=== PATIENT | female | born 1990 | race Asian ===

== ENCOUNTER 2019-11-18 02:45 | Inpatient (IN) ==
[2019-11-18] MEDS ORDERED: OXYTOCIN 30 UNITS/500 ML BAG IV PRN ×3 (04:18→22:54)
[2019-11-18 04:49] LABS: Hematocrit (blood only) 38.5 % (37-47); Hemoglobin 13.1 g/dL (12.0-16.0); Mean Corpuscular Hemoglobin 31.6 pg (25-34); Mean Platelet Volume 10.3 fL (7.4-10.4); Platelet Count 229 K/uL (130-400); RDW Coefficient of Variation 13.4 % (11.5-14.5); RDW Standard Deviation 45.6 fL (36.4-46.3); Red Blood Count 4.14 M/uL (4.2-5.4); White Blood Count 11.21 K/uL (4.8-10.8)
[2019-11-18] MEDS: LACTATED RINGER'S 1,000 ML IV PRN ×4 (06:48→20:23)
--- NOTE | 2019-11-18 06:49 | History & Physical Report ---
Date of Service November 18, 2019 Assessment & Plan (1) Normal labor: 29 yo F with no PMHx or complications this admitted for augmentation of labor with EDC 11/28; with PROM this morning. - Will augment labor with Pitocin. Pt is GBS negative. - Labor plan includes epidural. - Fetus with category 1 tracing. - Expect . History of Present Illness Primary Care Provider: NO PCP Ticou is a 29 yo F ; EDC 11/29/19 at 38+ weeks; Presents this AM for PROM at about 2am, but denies contractions, confirms good movement. No complications this . Received care by [facility]. Labor plan includes epidural. Patient plans to breastfeed after delivery. Labs (04/26/19; 11/18/19): Blood type: A+ Antibody screen: negative Hgb: 13.1 Hct: 38.5% WBC: 11.21 Plt: 229 Rubella status: immune VDLR/RPR: NR Gonorrhea: negative Chlamydia: negative HIV: negative GBS: negative HbSAg: negative Glucose tolerance test x2: normal OB Hx: no prior pregnancies, no complications this Gui Developer Hx: No Hx of STIs, no Hx of abnormal PAPs, last PAP 04/27/19 was negative Allergies Allergy/AdvReac Type Severity Reaction Status Date / Time No Known Allergies Allergy Verified 11/18/19 03:06 Home Medications Home Medications Medication Instructions Recorded Confirmed Type vitamin with calcium 1 tab PO DAILY #90 tab 09/20/19 11/18/19 Rx no.72-iron 27 mg-folic acid 1 mg tablet breast pump #1 ea 11/08/19 11/08/19 Rx docusate sodium [Colace] 100 mg PO BID 11/18/19 11/18/19 History Patient History Medical History No pertinent past medical history Family History Grandmother (Paternal) Diabetes Hypertension Grandfather (Paternal) Hypertension Grandmother (Maternal) Ovarian cancer Mother Ovarian cyst Social History Preferred Language: Mauritian Communication Ability: Effective Financial Reporting Specialist Required: No Beliefs That Will Affect Care: None marital status: marital status details: Deloris Jones (31) [phone] Current Living Situation: Spouse Current Living Situation Comment: no pets current occupational status: unemployed Feels Safe at Home: Yes Safety Concerns: Feels Safe At This Time Smoking Status: Never smoker Second Hand Exposure: No ; Hx Alcohol Use: No Hx Substance Use: No Childhood Exposure to Second-Hand Smoke: No Review of Systems Constitutional: denies fever, chills, sweats, headache Respiratory: denies SOB, difficulty breathing Cardiac: denies CP, chest palpitations, chest pressure Breast: denies breast pain : denies dysuria Physical Exam Physical Exam: General: patient is alert and oriented, in NAD Cardiac: +S1/S2, no murmurs rubs or gallops Respiratory: lungs CTA b/l, anteriorly and posteriorly, no wheezes rales or rhonchi, no increased work of breathing, symmetric chest rise, no respiratory distress Abdomen: Gravid, fundal height is term, + FHTs, baby is presenting vertex, no palpable contractions, EFW 7-8 lbs Uterus: uterine fundus firm Lower Extremities: no LE edema or swelling, no deep calf pain, Jenae's sign negative b/l Genitourinary: Manual OB Exam: + cervical dilation 1 cm, + cervical effacement 50% and + station -1 OB Exam Monitor Tracing: + external FHT monitor used, + external uterine monitor used, + category I and + normal FHT variability Results & Data Vital Signs (Past 12 Hours) Vital Signs Temp Pulse Resp BP 11/18/19 05:12 37.2 C 18 11/18/19 03:26 37.1 C 18 11/18/19 03:05 37.1 C 68 18 121/77 Laboratory Results Laboratory Results - last 24 hr 11/18/19 04:34 WBC 11.21 H RBC 4.14 L Hgb 13.1 Hct 38.5 MCV 93.0 MCH 31.6 MCHC 34.0 RDW Std Deviation 45.6 RDW Coeff of Surjit 13.4 Plt Count 229 MPV 10.3 Medications Administered Current Medications Lactated Ringer's (Lr) 1,000 mls @ 125 mls/hr IV .Q8H PRN; Protocol PRN Reason: L&D Protocol Stop: 11/20/19 04:17 Last Admin: 11/18/19 06:48 Dose: 125 mls/hr Documented by: Oxytocin (Pitocin) 30 units in 500 mls @ 333.333 mls/hr IV .Q1H30M PRN; Protocol PRN Reason: Bleeding Control Stop: 12/18/19 04:17 Oxytocin (Pitocin) 30 units in 500 mls @ 1 mls/hr IV .Q24H PRN; Protocol PRN Reason: Labor Induction/Augmentation Stop: 11/20/19 06:45 Monitoring External Monitor FHR 140s with good variability Supervising Physician Co-Signing Physician Notes Resident Physician Supervision Note: I was present with Dr. Park during the history and exam. I discussed the case with the resident and agree with the findings and plan as documented in the note. Any exceptions or clarifications are listed here: 29 G1 at 38 (+) wks GA, SROM, benign course, no uterine activity, EFW 8 lbs, will start pitocin augmentation, all questions answered of patient. Documented By: Clyde Jean Jr, MD, FACOG Coding Level of Care Code None Diagnoses Normal labor O80; Z37.9 Resident Activity Tracking Resident Involvement: Resident Care Provided Care Provided: OB Delivery
[2019-11-18] MEDS ORDERED: fentaNYL 2MCG/ML ROPIV 1.25MG/ML 100 ML BAG EPI ONE (09:37)
[2019-11-18] MEDS ORDERED: ePHEDrine sulfate 50 MG/ML AMP ONE (09:37)
[2019-11-18] MEDS ORDERED: BUPIVACAINE 0.25% 30 ML VIAL ONE (09:37)
[2019-11-18] MEDS ORDERED: fentaNYL citrate 100 MCG/2 ML VIAL ONE (09:37)
[2019-11-18] MEDS ORDERED: NALOXONE HCL 1 MG in SODIUM CHLORIDE 0.9% 1000ML 1,000 ML IV PRN (10:04)
[2019-11-18] MEDS ORDERED: fentaNYL 2MCG/ML ROPIV 1.25MG/ML 100 ML BAG EPI PRN (10:04)
[2019-11-18] MEDS ORDERED: ONDANSETRON INJ 2 MG/ML 2 ML VIAL IV PRN (10:04)
[2019-11-18] MEDS ORDERED: ePHEDrine sulfate 50 MG/ML AMP IV PRN (10:04)
[2019-11-18] MEDS ORDERED: NALBUPHINE HCL INJ 10 MG/ML AMP IV PRN (10:04)
[2019-11-18] MEDS ORDERED: DiphenhydrAMINE HCL 50 MG/ML VIAL IV PRN (10:04)
[2019-11-18] MEDS ORDERED: NALOXONE HCL 0.4 MG/1 ML VIAL/CARP IV PRN (10:04)
--- NOTE | 2019-11-18 10:08 | Anesthesiology Consultation ---
Date of Service November 18, 2019 Assessment & Plan Chart Review Chart Review: Patient NOT seen in Pre Admission Testing and Acceptable Risk for Labor Epidural Consults Requested none ASA ASA2 Proposed Anesthesia Anesthesia Type: Labor Epidural and CSE Risk / Benefits Reviewed With: PT / POA / Parent / Guardian, Accepts Plan and Informed Consent Obtained History Height/Weight Height: 5 ft 7 in Weight: 87.543 kg Allergies Allergy/AdvReac Type Severity Reaction Status Date / Time No Known Allergies Allergy Verified 11/18/19 03:06 Medications Home Medications Medication Instructions Recorded Confirmed Last Taken vitamin with calcium 1 tab PO DAILY #90 tab 09/20/19 11/18/19 11/15/19 08:00 no.72-iron 27 mg-folic acid 1 mg tablet breast pump #1 ea 11/08/19 11/08/19 Unknown docusate sodium [Colace] 100 mg PO BID 11/18/19 11/18/19 11/16/19 08:00 Active Medications Generic Name Dose Route Start Last Admin Trade Name Freq PRN Reason Stop Dose Admin Lactated Ringer's 1,000 mls @ 125 mls/hr 11/18/19 04:18 11/18/19 10:05 Lr IV 11/20/19 04:17 125 mls/hr .Q8H PRN Administration L&D Protocol Protocol Oxytocin 30 units in 500 mls @ 7 mls/hr 11/18/19 06:46 11/18/19 09:15 Pitocin IV 11/20/19 06:45 0.42 units/hr .Q24H PRN 7 mls/hr Labor Induction/Augmentation Titration Protocol 0.42 UNITS/HR NPO Date Last Intake of Fluids: 11/18/19 Time Last Intake of Fluids: 06:00 Date Last Intake of Solids: 11/18/19 Time Last Intake of Solids: 06:00 Past Medical History Medical History No pertinent past medical history Exercise / Class Metabolic Activity II 4-5 Yardwork/Stairs/Walk up hill Past Family History Family History Grandmother (Paternal) Diabetes Hypertension Grandfather (Paternal) Hypertension Grandmother (Maternal) Ovarian cancer Mother Ovarian cyst Past Anesthesia History No Hx of Anesthesia Complications and No Family Hx of Anesthesia Complications History of PONV No Hx of PONV and No Hx of Motion Sickness Social History Smoking Status: Never smoker Hx Alcohol Use: No Hx Substance Use: No Review of Systems no chest pain or sob Physical Exam Vital Signs Last Vital Signs Temp 37.1 C 11/18/19 08:49 Pulse 71 11/18/19 10:01 Resp 20 11/18/19 08:49 BP 127/76 11/18/19 10:00 Pulse Ox 93 11/18/19 10:01 ENMT Mouth: no TMJ abnormality Thyromental Distance: > or= 3.5 Finger Breadths Mallampati Class: II Neck normal visual inspection Respiratory normal respiratory effort Auscultation: lungs clear to auscultation bilaterally Cardiovascular Rate/Rhythm: regular rate and regular rhythm Musculoskeletal Spine: normal cervical ROM Neurologic moves all extremities Psychiatric Orientation: alert and oriented x 3 Testing Laboratory Results 11/18/19 04:34
--- NOTE | 2019-11-18 19:25 | Labor Progress Brief Note ---
Date of Service November 18, 2019 Subjective Reason For Note: Routine Evaluation Assessment & Plan (1) Normal labor: Patient progressing well with Cat 1 tracing. Continue labor with pitocin augmentation. Physical Exam Genitourinary: Manual OB Exam: + cervical dilation (8.5) OB Exam Monitor Tracing: + category I Results & Data Vital Signs (Past 12 Hours) Vital Signs Temp Pulse Resp BP Pulse Ox 11/18/19 19:17 73 95 11/18/19 19:16 75 109/66 11/18/19 19:15 37.8 C H 18 11/18/19 19:12 74 93 11/18/19 19:11 80 93 11/18/19 19:07 80 95 11/18/19 19:05 80 94 11/18/19 19:02 76 95 11/18/19 18:59 79 119/61 94 11/18/19 18:57 78 96 11/18/19 18:54 82 94 11/18/19 18:52 85 95 11/18/19 18:47 82 96 11/18/19 18:44 80 20 117/68 11/18/19 18:42 89 96 11/18/19 18:37 89 95 11/18/19 18:32 89 96 11/18/19 18:29 37.2 C 81 20 122/71 11/18/19 18:27 86 96 11/18/19 18:22 87 95 11/18/19 18:17 88 96 11/18/19 18:13 93 H 121/73 11/18/19 18:12 89 96 11/18/19 18:07 83 97 11/18/19 18:02 85 96 11/18/19 17:58 86 18 119/76 11/18/19 17:57 82 95 11/18/19 17:52 79 96 11/18/19 17:47 77 95 11/18/19 17:43 79 123/77 94 11/18/19 17:42 78 94 11/18/19 17:37 77 96 11/18/19 17:32 79 96 11/18/19 17:29 37.2 C 83 20 118/78 11/18/19 17:27 76 95 11/18/19 17:25 77 94 11/18/19 17:22 70 94 11/18/19 17:20 72 94 11/18/19 17:17 74 94 03/13/20 17:15 73 94 11/18/19 17:13 71 110/61 11/18/19 17:12 76 95 11/18/19 17:08 74 94 11/18/19 17:07 74 95 11/18/19 17:03 74 94 11/18/19 17:02 72 95 11/18/19 16:59 71 108/61 11/18/19 16:57 72 94 11/18/19 16:52 74 94 11/18/19 16:47 70 95 11/18/19 16:45 82 115/68 94 11/18/19 16:42 76 95 11/18/19 16:39 76 94 11/18/19 16:37 78 95 11/18/19 16:32 77 95 11/18/19 16:28 79 115/73 11/18/19 16:27 71 95 11/18/19 16:26 71 94 11/18/19 16:22 77 94 11/18/19 16:21 79 94 11/18/19 16:17 81 94 11/18/19 16:15 80 94 11/18/19 16:13 78 121/76 11/18/19 16:12 78 95 11/18/19 16:09 79 94 11/18/19 16:07 77 95 11/18/19 16:02 78 95 11/18/19 15:59 80 94 11/18/19 15:58 80 120/78 11/18/19 15:57 76 96 11/18/19 15:52 72 95 11/18/19 15:47 73 95 11/18/19 15:46 75 94 11/18/19 15:45 81 120/77 11/18/19 15:42 73 95 11/18/19 15:37 79 96 11/18/19 15:36 73 94 11/18/19 15:32 75 95 11/18/19 15:30 37.2 C 65 20 111/67 11/18/19 15:27 73 94 11/18/19 15:22 74 96 11/18/19 15:21 72 94 11/18/19 15:17 72 94 11/18/19 15:16 72 94 11/18/19 15:14 73 125/64 11/18/19 15:12 65 94 11/18/19 15:10 71 94 11/18/19 15:07 74 94 11/18/19 15:04 74 94 11/18/19 15:02 74 94 11/18/19 14:59 73 123/61 11/18/19 14:58 78 94 11/18/19 14:57 74 95 11/18/19 14:52 60 94 11/18/19 14:51 65 94 11/18/19 14:47 65 93 11/18/19 14:46 73 94 11/18/19 14:45 84 112/72 11/18/19 14:42 75 94 11/18/19 14:40 66 94 11/18/19 14:37 69 94 11/18/19 14:32 61 93 11/18/19 14:30 65 117/60 11/18/19 14:27 61 93 11/18/19 14:26 69 94 11/18/19 14:22 61 93 11/18/19 14:17 67 94 11/18/19 14:15 63 113/56 L 11/18/19 14:13 71 94 11/18/19 14:12 68 95 11/18/19 14:07 66 95 11/18/19 14:02 63 94 11/18/19 14:01 67 94 11/18/19 13:59 37.1 C 61 20 113/59 L 11/18/19 13:57 62 94 11/18/19 13:56 72 94 11/18/19 13:52 68 95 11/18/19 13:50 64 94 11/18/19 13:47 69 95 11/18/19 13:45 67 94 11/18/19 13:44 62 112/65 11/18/19 13:42 63 94 11/18/19 13:39 67 94 11/18/19 13:37 65 96 11/18/19 13:33 66 93 11/18/19 13:32 62 95 11/18/19 13:30 20 11/18/19 13:29 66 114/59 L 11/18/19 13:27 65 96 11/18/19 13:25 64 94 11/18/19 13:22 65 95 11/18/19 13:17 74 95 11/18/19 13:16 73 94 11/18/19 13:14 65 114/59 L 11/18/19 13:12 75 95 11/18/19 13:08 73 94 11/18/19 13:07 71 95 11/18/19 13:03 70 94 11/18/19 13:02 71 95 11/18/19 13:00 37.0 C 20 11/18/19 12:59 37.0 C 69 20 122/61 11/18/19 12:57 69 95 11/18/19 12:56 70 94 11/18/19 12:52 67 95 11/18/19 12:49 69 94 11/18/19 12:47 63 95 11/18/19 12:44 70 120/69 94 11/18/19 12:42 66 94 11/18/19 12:39 66 94 11/18/19 12:37 67 94 11/18/19 12:33 66 94 11/18/19 12:32 67 95 11/18/19 12:30 65 20 115/62 11/18/19 12:27 68 94 11/18/19 12:22 66 93 11/18/19 12:17 73 94 11/18/19 12:16 74 94 11/18/19 12:15 72 111/69 11/18/19 12:12 70 94 11/18/19 12:10 71 94 11/18/19 12:07 67 94 11/18/19 12:02 69 93 11/18/19 12:01 65 20 98/56 L 11/18/19 11:57 68 95 11/18/19 11:52 64 94 11/18/19 11:47 66 93 11/18/19 11:46 68 93 11/18/19 11:44 70 127/69 11/18/19 11:42 75 95 11/18/19 11:37 70 93 11/18/19 11:35 67 94 11/18/19 11:32 73 95 11/18/19 11:29 65 18 116/67 94 11/18/19 11:27 69 95 11/18/19 11:24 69 94 11/18/19 11:22 66 94 11/18/19 11:18 66 94 11/18/19 11:17 66 95 11/18/19 11:14 37.1 C 65 113/67 11/18/19 11:12 62 94 11/18/19 11:07 65 95 11/18/19 11:06 67 94 11/18/19 11:02 69 95 11/18/19 11:00 68 94 11/18/19 10:59 63 18 119/72 11/18/19 10:57 66 95 11/18/19 10:55 64 94 11/18/19 10:52 65 94 11/18/19 10:49 67 94 11/18/19 10:47 66 96 11/18/19 10:42 70 95 11/18/19 10:39 68 121/75 94 11/18/19 10:37 65 95 11/18/19 10:34 68 122/72 92 11/18/19 10:32 70 94 11/18/19 10:29 73 20 118/71 11/18/19 10:28 71 94 11/18/19 10:27 70 112/66 11/18/19 10:26 70 95 11/18/19 10:25 76 120/68 11/18/19 10:23 69 118/69 11/18/19 10:21 75 124/71 93 11/18/19 10:20 73 94 11/18/19 10:16 70 95 11/18/19 10:13 82 94 11/18/19 10:11 71 96 11/18/19 10:08 74 94 11/18/19 10:06 73 95 11/18/19 10:01 71 93 11/18/19 10:00 68 20 127/76 11/18/19 08:49 37.1 C 68 20 130/74 11/18/19 08:02 75 116/67 Coding Level of Care Code None Diagnoses Normal labor O80; Z37.9
--- NOTE | 2019-11-18 20:42 | Labor Progress Brief Note ---
Date of Service November 18, 2019 Subjective Reason For Note: Routine Evaluation Assessment & Plan (1) Normal labor: Cervix unchanged will place IUPC if unchanged at next check. Caput noted. Cat 1 at present Physical Exam Genitourinary: Manual OB Exam: + cervical dilation (8.5) OB Exam Monitor Tracing: + external FHT monitor used and + category I Results & Data Vital Signs (Past 12 Hours) Vital Signs Temp Pulse Resp BP Pulse Ox 11/18/19 20:37 73 94 11/18/19 20:32 77 96 11/18/19 20:29 76 111/63 11/18/19 20:27 77 95 11/18/19 20:22 78 95 11/18/19 20:17 75 95 11/18/19 20:14 37.4 C 18 11/18/19 20:13 87 116/62 11/18/19 20:12 74 94 11/18/19 20:07 74 93 11/18/19 20:02 71 94 11/18/19 19:59 78 18 111/60 11/18/19 19:57 76 95 11/18/19 19:52 76 94 11/18/19 19:47 74 96 11/18/19 19:44 74 114/61 11/18/19 19:42 77 95 11/18/19 19:37 83 95 11/18/19 19:32 73 95 11/18/19 19:29 68 112/60 11/18/19 19:27 66 93 11/18/19 19:22 78 95 11/18/19 19:17 73 95 11/18/19 19:16 75 109/66 11/18/19 19:15 37.8 C H 18 11/18/19 19:12 74 93 11/18/19 19:11 80 93 11/18/19 19:07 80 95 11/18/19 19:05 80 94 11/18/19 19:02 76 95 11/18/19 18:59 79 119/61 94 11/18/19 18:57 78 96 11/18/19 18:54 82 94 11/18/19 18:52 85 95 11/18/19 18:47 82 96 11/18/19 18:44 80 20 117/68 11/18/19 18:42 89 96 11/18/19 18:37 89 95 11/18/19 18:32 89 96 11/18/19 18:29 37.2 C 81 20 122/71 11/18/19 18:27 86 96 11/18/19 18:22 87 95 11/18/19 18:17 88 96 11/18/19 18:13 93 H 121/73 11/18/19 18:12 89 96 11/18/19 18:07 83 97 11/18/19 18:02 85 96 11/18/19 17:58 86 18 119/76 11/18/19 17:57 82 95 11/18/19 17:52 79 96 11/18/19 17:47 77 95 11/18/19 17:43 79 123/77 94 11/18/19 17:42 78 94 11/18/19 17:37 77 96 11/18/19 17:32 79 96 11/18/19 17:29 37.2 C 83 20 118/78 11/18/19 17:27 76 95 11/18/19 17:25 77 94 11/18/19 17:22 70 94 11/18/19 17:20 72 94 11/18/19 17:17 74 94 11/18/19 17:15 73 94 11/18/19 17:13 71 110/61 11/18/19 17:12 76 95 11/18/19 17:08 74 94 11/18/19 17:07 74 95 11/18/19 17:03 74 94 11/18/19 17:02 72 95 11/18/19 16:59 71 108/61 11/18/19 16:57 72 94 11/18/19 16:52 74 94 11/18/19 16:47 70 95 11/18/19 16:45 82 115/68 94 11/18/19 16:42 76 95 11/18/19 16:39 76 94 11/18/19 16:37 78 95 11/18/19 16:32 77 95 11/18/19 16:28 79 115/73 03 16:27 71 95 11/18/19 16:26 71 94 11/18/19 16:22 77 94 11/18/19 16:21 79 94 11/18/19 16:17 81 94 11/18/19 16:15 80 94 11/18/19 16:13 78 121/76 0320 16:12 78 95 11/18/19 16:09 79 94 11/18/19 16:07 77 95 11/18/19 16:02 78 95 11/18/19 15:59 80 94 11/18/19 15:58 80 120/78 11/18/19 15:57 76 96 11/18/19 15:52 72 95 11/18/19 15:47 73 95 11/18/19 15:46 75 94 11/18/19 15:45 81 120/77 11/18/19 15:42 73 95 11/18/19 15:37 79 96 11/18/19 15:36 73 94 11/18/19 15:32 75 95 11/18/19 15:30 37.2 C 65 20 111/67 11/18/19 15:27 73 94 11/18/19 15:22 74 96 11/18/19 15:21 72 94 11/18/19 15:17 72 94 11/18/19 15:16 72 94 11/18/19 15:14 73 125/64 11/18/19 15:12 65 94 11/18/19 15:10 71 94 11/18/19 15:07 74 94 11/18/19 15:04 74 94 11/18/19 15:02 74 94 11/18/19 14:59 73 123/61 11/18/19 14:58 78 94 11/18/19 14:57 74 95 11/18/19 14:52 60 94 11/18/19 14:51 65 94 11/18/19 14:47 65 93 11/18/19 14:46 73 94 11/18/19 14:45 84 112/72 11/18/19 14:42 75 94 11/18/19 14:40 66 94 11/18/19 14:37 69 94 11/18/19 14:32 61 93 11/18/19 14:30 65 117/60 11/18/19 14:27 61 93 11/18/19 14:26 69 94 11/18/19 14:22 61 93 11/18/19 14:17 67 94 11/18/19 14:15 63 113/56 L 11/18/19 14:13 71 94 11/18/19 14:12 68 95 11/18/19 14:07 66 95 03/13/20 14:02 63 94 11/18/19 14:01 67 94 11/18/19 13:59 37.1 C 61 20 113/59 L 11/18/19 13:57 62 94 11/18/19 13:56 72 94 11/18/19 13:52 68 95 11/18/19 13:50 64 94 11/18/19 13:47 69 95 11/18/19 13:45 67 94 11/18/19 13:44 62 112/65 11/18/19 13:42 63 94 11/18/19 13:39 67 94 11/18/19 13:37 65 96 11/18/19 13:33 66 93 11/18/19 13:32 62 95 11/18/19 13:30 20 11/18/19 13:29 66 114/59 L 11/18/19 13:27 65 96 11/18/19 13:25 64 94 11/18/19 13:22 65 95 11/18/19 13:17 74 95 11/18/19 13:16 73 94 11/18/19 13:14 65 114/59 L 11/18/19 13:12 75 95 11/18/19 13:08 73 94 11/18/19 13:07 71 95 11/18/19 13:03 70 94 11/18/19 13:02 71 95 11/18/19 13:00 37.0 C 20 11/18/19 12:59 37.0 C 69 20 122/61 11/18/19 12:57 69 95 11/18/19 12:56 70 94 11/18/19 12:52 67 95 11/18/19 12:49 69 94 11/18/19 12:47 63 95 11/18/19 12:44 70 120/69 94 11/18/19 12:42 66 94 11/18/19 12:39 66 94 11/18/19 12:37 67 94 11/18/19 12:33 66 94 11/18/19 12:32 67 95 11/18/19 12:30 65 20 115/62 11/18/19 12:27 68 94 11/18/19 12:22 66 93 11/18/19 12:17 73 94 11/18/19 12:16 74 94 11/18/19 12:15 72 111/69 0320 12:12 70 94 03 12:10 71 94 03 12:07 67 94 11/18/19 12:02 69 93 11/18/19 12:01 65 20 98/56 L 11/18/19 11:57 68 95 20 11:52 64 94 20 11:47 66 93 0320 11:46 68 93 20 11:44 70 127/69 03/20 11:42 75 95 0320 11:37 70 93 20 11:35 67 94 20 11:32 73 95 0320 11:29 65 18 116/67 94 20 11:27 69 95 0320 11:24 69 94 20 11:22 66 94 20 11:18 66 94 11/18/19 11:17 66 95 11/18/19 11:14 37.1 C 65 113/67 11/18/19 11:12 62 94 0320 11:07 65 95 11/18/19 11:06 67 94 11/18/19 11:02 69 95 11/18/19 11:00 68 94 0320 10:59 63 18 119/72 03/20 10:57 66 95 03/20 10:55 64 94 20 10:52 65 94 11/17/20 10:49 67 94 0320 10:47 66 96 0320 10:42 70 95 0320 10:39 68 121/75 94 03/20 10:37 65 95 03/20 10:34 68 122/72 92 03/20 10:32 70 94 03/20 10:29 73 20 118/71 0313/20 10:28 71 94 03/20 10:27 70 112/66 0313/20 10:26 70 95 03/20 10:25 76 120/68 03/13/20 10:23 69 118/69 03/13/20 10:21 75 124/71 93 0313/20 10:20 73 94 03/13/20 10:16 70 95 03/13/20 10:13 82 94 11/18/19 10:11 71 96 11/18/19 10:08 74 94 11/18/19 10:06 73 95 11/18/19 10:01 71 93 11/18/19 10:00 68 20 127/76 11/18/19 08:49 37.1 C 68 20 130/74 Coding Level of Care Code None Diagnoses Normal labor O80; Z37.9
[2019-11-18] MEDS ORDERED: HYDROCORTISONE ACETATE 25 MG SUPP PR PRN (22:54)
[2019-11-18] MEDS ORDERED: DIPHTHERIA/TETANUS/PERTUSSIS 0.5 ML SYR/VIAL IM ONE (22:54)
[2019-11-18] MEDS ORDERED: BENZOCAINE 20% AER SPR 82.5 GM CAN EXT PRN (22:54)
[2019-11-18] MEDS ORDERED: SUPERCREAM 0.870% 15 GM JAR EXT PRN (22:54)
[2019-11-18] MEDS ORDERED: ACETAMINOPHEN 325 MG TAB PO PRN (22:54)
[2019-11-18] MEDS ORDERED: bisacodyL 10 MG SUPP PR PRN (22:54)
[2019-11-18] MEDS ORDERED: GENTAMICIN CONSULT ACTIVE PRN (23:03)
[2019-11-18] MEDS: IBUPROFEN 600 MG TAB PO PRN (23:09)
--- NOTE | 2019-11-18 23:57 | Delivery Summary ---
DATE OF OPERATION: 11/18/2019 PROCEDURE: Normal spontaneous vaginal delivery with second-degree perineal laceration repair. SURGEON: Farhan Tirado MD PREOPERATIVE DIAGNOSES: 1. Single intrauterine at 38 weeks 3 days gestational age. 2. Premature rupture of membranes. POSTOPERATIVE DIAGNOSES: 1. Single intrauterine at 38 weeks 3 days gestational age. 2. Premature rupture of membranes. 3. Status post delivery. ESTIMATED BLOOD LOSS: 300 mL DRAINS: Straight cath at completion of the case. URINE OUTPUT: 400 mL at the completion of the case. COMPLICATIONS: None. FINDINGS: Viable male with weight pending and Apgars of 6 and 7 at 1 and 5 minutes respectively. INDICATIONS: Ms. Cardenas is a 29-year-old G1, P0, admitted at 38.3 weeks' gestational age for premature rupture of membranes. At time of initial evaluation, the patient was 1 cm dilated, 50% effaced, -1 station. She was started on oxytocin per regular protocol. She later received an epidural for anesthesia. She continued to progress in labor with Pitocin augmentation until she was complete-complete, +2 station, at which time the patient began to push. The patient was noted to have short periods of tachycardia without maternal temperature. At time of delivery, the maternal temperature was noted within few minutes of delivery; however, there was not tachycardia present at that time. Due to the immediacy of delivery, we opted to proceed with expedited delivery. The patient delivered within approximately 10 minutes of the temperature. DESCRIPTION OF PROCEDURE: The patient progressed to 10 cm dilated, 100% effaced, +2 station, pushed over intact perineum with epidural anesthesia and delivered a viable male with weight and Apgars as noted above. Head of the delivered in VANIA position, rest was transverse. A double nuchal cord was noted which was able to be reduced. Body and shoulders quickly followed. was noted to have spontaneous cry soon after delivery. The cord was double clamped and cut and was taken to the awaiting nursery staff for further evaluation. Cord blood was obtained for collection and then cord blood for blood typing was also collected. Attention was then turned to delivery of placenta, which was delivered intact, 3-vessel cord with gentle cord traction. On inspection of the perineum, vagina, and cervix, there was noted to be a second-degree perineal laceration which was repaired with 3-0 Vicryl continuous crown stitch. The bladder was drained for 400 mL of yellow urine at the completion of the case via red rubber. Needle, sponge, and instrument counts were correct at the completion of the case. Both mother and were stable in the immediate post-delivery period. I attest to the content of the Intraoperative Record and any orders documented therein. Any exceptions are noted below. MTDD
[2019-11-19] MEDS: CLINDAMYCIN 900 MG in DEXTROSE 5% 50 ML IV SCH ×2 (01:00→08:30)
[2019-11-19] MEDS ORDERED: GENTAMICIN SULFATE 360 MG in DEXTROSE 5% 100 ML IV SCH (01:00)
--- NOTE | 2019-11-19 01:21 | Anesthesia Procedure Note ---
Date of Service November 19, 2019 Anesthesia Post Epidural Note Vital Signs Vital Signs: Temp Pulse Resp BP Pulse Ox 37.2 C 89 18 115/59 L 95 11/19/19 00:46 11/19/19 01:02 11/19/19 00:46 11/19/19 01:02 11/18/19 22:47 Pain Intensity Episiotomy/Laceration: Pain Intensity: 3 Notes Mental Status: alert / awake / arousable and participated in evaluation Nausea / Vomiting: adequately controlled Pain: adequately controlled Airway Patency, RR, SpO2: stable & adequate BP & HR: stable & adequate Hydration State: stable & adequate Neuraxial Anesthesia: was administered and sensory block is resolving Anesthetic Complications: no major complications apparent and Pt Satisfied with anesthetic care Epidural: Removed without complications and With tip intact
[2019-11-19] MEDS: IBUPROFEN 600 MG TAB PO PRN ×3 (05:55→20:16)
[2019-11-19 06:49] LABS: Hematocrit (blood only) 33.2 % (37-47); Hemoglobin 11.1 g/dL (12.0-16.0); Mean Corpuscular Hgb Conc 33.4 g/dL (32-36); Mean Corpuscular Volume 92.7 fL (80-100); Mean Platelet Volume 10.2 fL (7.4-10.4); Platelet Count 190 K/uL (130-400); RDW Coefficient of Variation 13.6 % (11.5-14.5); RDW Standard Deviation 46.2 fL (36.4-46.3); Red Blood Count 3.58 M/uL (4.2-5.4); White Blood Count 18.55 K/uL (4.8-10.8)
--- NOTE | 2019-11-19 07:36 | Obstetrical Progress Note ---
Date of Service <Darby Park DO - Last Filed: 11/19/19 08:13> November 19, 2019 Assessment & Plan <Darby Park DO - Last Filed: 11/19/19 08:13> (1) Encounter for care and examination after delivery: 29 yo F PPD#1 from [facility] at 38+ weeks. - will continue routine care. - leukocytosis to 18.55 however does not have any fever since midnight. No clear infectious source. GBS negative. - following discharge will require follow up with Dr. Tirado. - pt would benefit from seeing campaign specialist while in house. - answered all patient questions. Subjective <Darby Park DO - Last Filed: 11/19/19 08:13> Dinorah is a 29 yo female ; PPD # 1 following vaginal delivery at 38 weeks; doing well this AM; no abdominal cramping/pain; voiding well; tolerating snacks overnight, able to ambulate minimally within the room. Was febrile during delivery and until midnight, has not had fevers since. Does not feel feverish nor has she had chills. Intends to breastfeed however feels like "nothing is coming out right now". Review of Systems Constitutional: denies fever, chills, sweats, headache Respiratory: denies SOB, difficulty breathing Cardiac: denies CP, chest palpitations, chest pressure Breast: denies breast pain : denies dysuria Physical Exam <Darby Park DO - Last Filed: 11/19/19 08:13> General: patient is alert and oriented, in NAD Cardiac: +S1/S2, no murmurs rubs or gallops Respiratory: lungs CTA b/l, anteriorly and posteriorly, no wheezes rales or rhonchi, no increased work of breathing, symmetric chest rise, no respiratory distress Abdomen: soft, NT, +bowel sounds Uterus: uterine fundus firm, palpable below the level of umbilicus Lower Extremities: no LE edema or swelling, no deep calf pain, Jenae's sign negative b/l Results & Data <Darby Park DO - Last Filed: 11/19/19 08:13> Vital Signs (Past 12 Hours) Vital Signs Temp Pulse Pulse Resp BP BP Pulse Ox 11/19/19 04:00 36.5 C 67 18 107/67 11/19/19 01:02 89 115/59 L 11/19/19 01:00 37.2 C 89 18 115/59 L 11/19/19 00:46 37.2 C 88 18 110/58 L 11/19/19 00:31 81 106/58 L 11/19/19 00:16 37.7 C H 96 H 18 115/58 L 11/19/19 00:01 91 H 123/68 11/18/19 23:46 86 18 114/56 L 11/18/19 23:31 86 18 116/58 L 11/18/19 23:16 82 18 123/63 11/18/19 23:01 82 20 122/62 11/18/19 22:47 82 95 11/18/19 22:46 39.0 C H 87 20 123/66 11/18/19 22:44 90 129/71 11/18/19 22:42 88 95 11/18/19 22:37 89 95 11/18/19 22:32 81 93 11/18/19 22:29 88 122/61 11/18/19 22:27 89 96 11/18/19 22:22 106 H 95 11/18/19 22:17 91 H 131/65 96 11/18/19 22:12 122 H 96 11/18/19 22:07 87 94 11/18/19 22:03 38.8 C H 20 11/18/19 22:02 91 H 95 11/18/19 21:58 87 128/65 11/18/19 21:57 84 95 11/18/19 21:52 98 H 95 11/18/19 21:47 106 H 95 11/18/19 21:45 79 127/67 11/18/19 21:42 86 94 11/18/19 21:37 105 H 96 11/18/19 21:32 75 95 11/18/19 21:30 81 20 132/71 11/18/19 21:27 105 H 96 11/18/19 21:22 92 H 95 11/18/19 21:17 76 96 11/18/19 21:15 82 127/68 11/18/19 21:12 96 H 96 11/18/19 21:07 87 96 11/18/19 21:02 75 96 11/18/19 21:00 20 11/18/19 20:59 81 131/71 11/18/19 20:57 80 96 11/18/19 20:52 81 95 11/18/19 20:47 76 95 11/18/19 20:44 77 114/58 L 11/18/19 20:42 75 95 11/18/19 20:37 73 94 11/18/19 20:32 77 96 11/18/19 20:30 18 11/18/19 20:29 76 111/63 11/18/19 20:27 77 95 11/18/19 20:22 78 95 11/18/19 20:17 75 95 11/18/19 20:14 37.4 C 18 11/18/19 20:13 87 116/62 11/18/19 20:12 74 94 11/18/19 20:07 74 93 11/18/19 20:02 71 94 11/18/19 19:59 78 18 111/60 11/18/19 19:57 76 95 11/18/19 19:52 76 94 11/18/19 19:47 74 96 11/18/19 19:44 74 114/61 11/18/19 19:42 77 95 11/18/19 19:37 83 95 Laboratory Results Laboratory Results - last 24 hr 11/19/19 06:28 WBC 18.55 H RBC 3.58 L Hgb 11.1 L Hct 33.2 L MCV 92.7 MCH 31.0 MCHC 33.4 RDW Std Deviation 46.2 RDW Coeff of Surjit 13.6 Plt Count 190 MPV 10.2 Medications Administered Current Medications Acetaminophen (Tylenol) 650 mg PO Q6H PRN PRN Reason: Pain/LOPEZ/Fever Stop: 12/18/19 22:53 Benzocaine (Dermoplast Pain Relieving [place]) 1 appln EXT PRN PRN PRN Reason: Perineal Discomfort Stop: 12/18/19 22:53 Last Admin: 11/19/19 01:00 Dose: 1 appln Documented by: Bisacodyl (Dulcolax) 5 mg PO 1999 TYRA Stop: 11/19/19 20:01 Bisacodyl (Dulcolax) 10 mg IA DAILY PRN PRN Reason: No BM on 2nd post- day Stop: 12/18/19 22:53 Cocaine HCl (Supercream 0.870%) 1 gm EXT BID PRN PRN Reason: Hemorrhoidal Inflammation Stop: 12/02/19 22:53 Last Admin: 11/19/19 01:00 Dose: 1 gm Documented by: Diphenhydramine HCl (Benadryl) 25 mg IV Q6H PRN PRN Reason: Itching Stop: 11/19/19 10:03 Docusate Sodium (Colace) 100 mg PO DAILY@08,21 TYRA Stop: 12/19/19 07:59 Ephedrine Sulfate (Ephedrine Sulfate) 10 mg IV Q5M PRN PRN Reason: Hypotension Stop: 11/19/19 10:03 Hydrocortisone (Anusol Hc) 25 mg IA BID PRN PRN Reason: Hemorrhoidal Inflammation Stop: 12/18/19 22:53 Lactated Ringer's (Lr) 1,000 mls @ 125 mls/hr IV .Q8H PRN; Protocol PRN Reason: L&D Protocol Stop: 11/20/19 04:17 Last Infusion: 11/18/19 23:13 Dose: 125 mls/hr Documented by: Oxytocin (Pitocin) 30 units in 500 mls @ 333.333 mls/hr IV .Q1H30M PRN; Protocol PRN Reason: Bleeding Control Stop: 12/18/19 04:17 Naloxone HCl 1 mg/ Sodium (Chloride) 1,002.5 mls @ 50 mls/hr IV .Q20H3M PRN PRN Reason: itching or nausea Stop: 11/19/19 10:03 Oxytocin (Pitocin) 30 units in 500 mls @ 333.333 mls/hr IV .Q1H30M PRN; Protocol PRN Reason: Bleeding Control Stop: 12/18/19 22:53 Gentamicin Sulfate 360 mg/ (Dextrose) 109 mls @ 100 mls/hr IV Q24H TYRA; Protocol Stop: 11/29/19 00:59 Last Admin: 11/19/19 01:00 Dose: Not Given Documented by: Clindamycin Phosphate 900 mg/ (Dextrose) 56 mls @ 112 mls/hr IV Q8H TYRA Stop: 11/29/19 00:00 Last Admin: 11/19/19 01:00 Dose: Not Given Documented by: Ibuprofen (Motrin) 600 mg PO Q4H PRN PRN Reason: Pain/LOPEZ/Cramping/Fever Stop: 12/18/19 22:53 Last Admin: 11/19/19 05:55 Dose: 600 mg Documented by: Miscellaneous Information (Consult) 1 ea N/A UD PRN PRN Reason: Consult Stop: 12/18/19 23:02 Nalbuphine HCl (Nubain) 5 mg IV Q10M PRN PRN Reason: itching or nausea Stop: 11/19/19 10:03 Naloxone HCl (Narcan) 0.1 mg IV UD PRN PRN Reason: Respiratory Depression Stop: 11/19/19 10:03 Ondansetron HCl (Zofran) 4 mg IV Q6H PRN PRN Reason: Nausea And Vomiting Stop: 11/19/19 10:03 Prenat Multivit/[place]/Iron/Folic Ac ( Vitamin) 1 tab PO DAILY@08 TYRA Stop: 12/19/19 07:59 Ropivacaine (Epidural (L&D)) 100 ml EPI PRN PRN; Protocol PRN Reason: Pain R/T Labor Stop: 11/19/19 10:03 Last Admin: 11/18/19 17:06 Dose: 10 ml Documented by: <Farhan Tirado MD - Last Filed: 11/19/19 08:42> Co-Signing Physician Notes Patient seen and evaluated and agree with the above findings and plan. Patient febrile at time of delivery. Has been afebrile since. Will continue to monitor for endometritis. Routine post care Resident Activity Tracking <Darby Park DO - Last Filed: 11/19/19 08:13> Resident Involvement: Resident Care Provided Care Provided: OB Delivery
[2019-11-19] MEDS: DOCUSATE SODIUM 100 MG CAP PO SCH ×2 (08:28→20:16)
[2019-11-19] MEDS: PRENATAL VITAMIN 1 TAB PO SCH (08:28)
[2019-11-19] MEDS ORDERED: bisacodyL 5 MG TABEC PO SCH (20:00)
[2019-11-20 06:40] LABS: Hematocrit (blood only) 32.3 % (37-47); Hemoglobin 10.8 g/dL (12.0-16.0)
[2019-11-20] MEDS: PRENATAL VITAMIN 1 TAB PO SCH (08:23)
[2019-11-20] MEDS: DOCUSATE SODIUM 100 MG CAP PO SCH (08:23)
--- NOTE | 2019-11-20 09:06 | Obstetrical Progress Note ---
Date of Service November 20, 2019 Assessment & Plan (1) Supervision of normal intrauterine in primigravida: PPD#2 doing well. Discharge instructions discussed. Followup 6w in office. Subjective Ambulation: ambulating normally Voiding: no voiding problems Diet Tolerance:: regular diet Lochia:: Moderate Review of Systems All systems reviewed & are unremarkable except as noted in HPI & below Physical Exam Constitutional WD/WN, vitals as above no acute distress Respiratory normal respiratory effort Cardiovascular Rate/Rhythm: regular rate and regular rhythm Gastrointestinal (Abdomen) Inspection/Auscultation: abdomen normal to inspection; abdomen not distended Percussion/Palpation: abdomen soft Genitourinary OB Exam Abdomen: + fundal height Fundus: + firm; not tender Results & Data Vital Signs (Past 12 Hours) Vital Signs Temp Pulse Resp BP Pulse Ox 11/19/19 23:20 37.0 C 66 16 106/63 98
== END 2019-11-20 13:40 | disposition home or self-care (01) | DRG 807 ==
LOC: OPB 02:45 → 4S1 02:50 → 4S2 11-19 02:01